=== PATIENT | male | born 1960 | race African-American/Black ===

== ENCOUNTER 2017-06-03 09:38 | Inpatient (IN) | payer OTHER ==
[2017-06-03 12:41] VITALS: BMI 18.7
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
[2017-06-03] MEDS ORDERED: chlordiazePOXIDE HCL 25 MG CAPSULE PO PRN (16:33)
[2017-06-03] MEDS ORDERED: NICOTINE POLACRILEX 2 MG GUM BC PRN (16:33)
[2017-06-03] MEDS ORDERED: diphenhydrAMINE HCL 50 MG CAPSULE PO PRN (16:33)
[2017-06-03] MEDS ORDERED: MENTHOL/PHENOL 1 EACH UD MM PRN (16:33)
[2017-06-03] MEDS ORDERED: P-EPHED 60MG/TRIPROLIDI 2.5MG TABLET PO PRN (16:33)
[2017-06-03] MEDS ORDERED: MAGNESIUM HYDROX 2400MG/30ML ORAL SUSPENSION 30 ML CUP PO PRN (16:33)
[2017-06-03] MEDS ORDERED: MAG HYDROX/AL HYDROX/SIMETH 30 ML UNIT-DOSE CUP PO PRN (16:33)
[2017-06-03] MEDS ORDERED: guaiFENesin/D-METHORPHAN HB 10 ML UNIT-DOSE CUPS PO PRN (16:33)
[2017-06-03] MEDS ORDERED: ACETAMINOPHEN 325 MG TABLET (FP) PO PRN (16:33)
[2017-06-03] MEDS ORDERED: IBUPROFEN 400 MG TABLET (FP) PO PRN (16:33)
[2017-06-03] MEDS ORDERED: MAGNESIUM CITRATE 300 ML BOTTLE PO PRN (16:33)
[2017-06-03] MEDS ORDERED: LOPERAMIDE HCL 2 MG CAPSULE PO PRN (16:33)
[2017-06-03] MEDS ORDERED: hydrOXYzine PAMOATE 50 MG CAPSULE (FP) PO PRN (16:33)
[2017-06-03] MEDS: chlordiazePOXIDE HCL 25 MG CAPSULE PO SCH ×2 (17:21→22:18)
[2017-06-03] MEDS: NICOTINE 21 MG/24 HOURS TOPICAL PATCH TD SCH (17:26)
[2017-06-03] MEDS ORDERED: chlordiazePOXIDE HCL 25 MG CAPSULE PO ONE (17:30)
[2017-06-03] MEDS ORDERED: PATIENT'S OWN MEDICATION (NON-FORMULARY) (Dorzolamide Hcl/Timolol Maleat [Cosopt Eye Drops OU SCH (22:00)
[2017-06-03] MEDS: THIAMINE HCL 100 MG TABLET (FP) PO SCH (22:18)
[2017-06-03] MEDS: LATANOPROST 0.005% OPHTH SOLN 2.5ML BOTTLE OU SCH (22:20)
[2017-06-03] MEDS: AMMONIUM LACTATE 12% LOTION 225 GM BOTTLE TP SCH (22:22)
[2017-06-03] MEDS: BRIMONIDINE TARTRATE 0.2% OPHTHALMIC 5 ML BOTTLE OU SCH (22:22)
[2017-06-03] MEDS: DORZOLAMIDE 2% HCL OPHTHALMIC SOLUTION 10 ML BOTTLE OU SCH (22:22)
[2017-06-03] MEDS: CLOTRIMAZOLE 1% CREAM 15 GM TUBE TP SCH (22:23)
[2017-06-03] MEDS: TIMOLOL 0.5% OPHTHALMIC SOL 5 ML BOTTLE OU SCH (22:24)
[2017-06-03 22:39] LABS: URINE APPEARANCE CLEAR; URINE BILIRUBIN NEGATIVE (NEGATIVE); URINE BLOOD 1+ (NEGATIVE); URINE COLOR YELLOW; URINE GLUCOSE (UA) NEGATIVE (NEGATIVE); URINE KETONE NEGATIVE (NEGATIVE); URINE LEUK ESTERASE NEGATIVE (NEGATIVE); URINE NITRITE NEGATIVE (NEGATIVE); URINE PROTEIN NEGATIVE (NEGATIVE)
[2017-06-03 23:18] LABS: CALCIUM OXALATE CRYSTALS RARE /hpf (NONE SEEN); URINE MUCUS RARE; URINE RBC 1 /hpf (0-3); URINE WBC 6 /hpf (3-5)
[2017-06-04] MEDS: chlordiazePOXIDE HCL 25 MG CAPSULE PO SCH ×4 (06:02→22:36)
[2017-06-04] MEDS: BRIMONIDINE TARTRATE 0.2% OPHTHALMIC 5 ML BOTTLE OU SCH ×2 (10:15→22:35)
[2017-06-04] MEDS: TIMOLOL 0.5% OPHTHALMIC SOL 5 ML BOTTLE OU SCH ×2 (10:16→22:36)
[2017-06-04] MEDS: AMMONIUM LACTATE 12% LOTION 225 GM BOTTLE TP SCH ×2 (10:16→22:37)
[2017-06-04] MEDS: DORZOLAMIDE 2% HCL OPHTHALMIC SOLUTION 10 ML BOTTLE OU SCH ×2 (10:16→23:52)
[2017-06-04] MEDS: PRENATAL VITAMINS W/ FOLIC ACID TABLET (FP) PO SCH (10:17)
[2017-06-04] MEDS: CLOTRIMAZOLE 1% CREAM 15 GM TUBE TP SCH ×2 (10:17→23:10)
[2017-06-04] MEDS: NICOTINE 21 MG/24 HOURS TOPICAL PATCH TD SCH (10:17)
--- NOTE | 2017-06-04 10:31 | CONSULT ---
[facility] Psychiatric Consult - Data Date of interview: 06/04/17 Admission source: [facility] Identifying data: First admission to [facility] for this 56 y/o AA male seeking detox treatment on for alcohol and cocaine dependence.Patient is single without children,homeless,unemployed and supported on Public Assistance. Substance Abuse History: Patient endorses an extensive history of substance abuse since age 16 for alcohol and age 20 for cocaine." I drink everything that I can get my hands on." Wine,rum,beer,hard liquors.Daily.Smokes 1/2 pack of cigarettes/day.Last reported use 06/03/17. Medical History: Glaucoma,cataract in left eye,arthritis and a history of lung ( right) surgery in 2013. Psychiatric History: Patient denies history of psychiatric hospitalizations.Used to be prescribed seroquel for sleep.No recent history of OPD care.Mr Hardin denies history of suicide attempts. Physical/Sexual Abuse/Trauma History: Patient denies. Additional Comment: Urine Drug Screen Results: NATALIA-Cocaine, PCP- Phencyclidine.Noted. Mental Status Exam - Mental Status Exam Alert and Oriented to: Time, Place, Person Cognitive Function: Good Patient Appearance: Unkempt, Disheveled (tall stature,cachetic;walks with a stooped posture) Mood: Hopeful, Euthymic Affect: Appropriate, Normal Range Patient Behavior: Fatigued, Cooperative Speech Pattern: Clear Voice Loudness: Normal Thought Process: Goal Oriented Thought Disorder: Not Present Hallucinations: Denies Suicidal Ideation: Denies Homicidal Ideation: Denies Insight/Judgement: Poor Sleep: Poorly, Difficulty falling asleep Appetite: Good Gait/Station: Other (ambulates with a stooped posture) Psychiatric Findings - Problem List ([place] 1, 2,3) (1) Alcohol dependence with uncomplicated withdrawal Current Visit: Yes Status: Acute (2) Cocaine dependence, uncomplicated Current Visit: Yes Status: Acute (3) Nicotine dependence Current Visit: Yes Status: Acute Qualifiers: Nicotine product type: cigarettes Substance use status: uncomplicated Qualified Code(s): F17.210 - Nicotine dependence, cigarettes, uncomplicated (4) PCP abuse Current Visit: Yes Status: Acute (5) Cataract, left eye Current Visit: Yes Status: Chronic Qualifiers: Cataract type: unspecified Qualified Code(s): H26.9 - Unspecified cataract (6) Glaucoma, bilateral Current Visit: Yes Status: Chronic Qualifiers: Glaucoma type: unspecified Qualified Code(s): H40.9 - Unspecified glaucoma (7) Left leg injury Current Visit: Yes Status: Chronic Qualifiers: Encounter type: sequela Qualified Code(s): S89.92XS - Unspecified injury of left lower leg, sequela Comment: Occurred in 2006. (8) Insomnia Current Visit: Yes Status: Acute - Initial Treatment Plan Initial Treatment Plan: Psychoeducation.Detoxification.Falls precautions.Orientation to the unit (patient has decreased vision).Seroquel (at patient's request) 50 mg po hs.Side effects/benefits discussed with Mr Hardin.He expresses his agreement with this plan of care.Monitor progress.
[2017-06-04 11:08] LABS: ALBUMIN 3.4 g/dl (3.4-5.0); ALK PHOS 75 U/L (45-117); ANION GAP 5 (8-16); BILIRUBIN,TOTAL 0.8 mg/dL (0.2-1.0); CALCIUM 9.3 mg/dL (8.5-10.1); CO2 29 mmol/L (21-32); CREATININE 1.2 mg/dL (0.7-1.3); GLUCOSE,RANDOM 93 mg/dL (74-106); SGOT/AST 18 U/L (15-37); SGPT/ALT 15 U/L (12-78); TOT PROT 7.1 g/dl (6.4-8.2)
[2017-06-04 11:11] LABS: MCH 33.2 pg (25.7-33.7); MEAN CELL VOLUME 97.7 fl (80-96); MEAN PLT VOLUME 9.8 fl (7.5-11.1); PLATELET COUNT 211 K/MM3 (134-434); WHITE BLOOD COUNT 4.5 K/mm3 (4.0-10.0)
[2017-06-04 11:39] LABS: HIV 1 & 2 AB NEGATIVE; HIV 1 AGp24 NEGATIVE
[2017-06-04 13:15] LABS: SICKLE CELL SCREEN POSITIVE (NEGATIVE)
--- NOTE | 2017-06-04 15:38 | PN ---
[facility] CIWA - CIWA Score Nausea/Vomitin-Mild Nausea/No Vomiting Muscle Tremors: 4-Moderate,w/Arms Extend Anxiety: 3 Agitation: 2 Paroxysmal Sweats: 3 Orientation: 0-Oriented Tacttile Disturbances: 0-None Auditory Disturbances: 3-Moderate Harsh/Frighten Visual Disturbances: 2-Mild Sensitivity Headache: 0-None Present CIWA-Ar Total Score: 18 S Progress Note (SOAP) Subjective: Tremors, Fatigue, Sweating, Body Aches. Objective: PT. A & O X 3, OBSERVED AMBULATING ON UNIT. NO ACUTE DISTRESS. 06/04/17 15:33 Vital Signs Temperature 97.5 F L 06/04/17 10:00 Pulse Rate 71 06/04/17 10:00 Respiratory Rate 18 06/04/17 10:00 Blood Pressure 118/86 06/04/17 10:00 O2 Sat by Pulse Oximetry (%) Laboratory Tests 06/03/17 06/04/17 06/04/17 16:15 06:00 06:00 WBC 4.5 RBC 4.16 Hgb 13.8 Hct 40.7 MCV 97.7 H MCH 33.2 MCHC 34.0 RDW 15.0 Plt Count 211 MPV 9.8 Sickle Cell Screen Positive Sodium 142 Potassium 4.5 Chloride 108 H Carbon Dioxide 29 Anion Gap 5 L BUN 17 Creatinine 1.2 Creat Clearance w eGFR > 60 Random Glucose 93 Calcium 9.3 Total Bilirubin 0.8 AST 18 ALT 15 Alkaline Phosphatase 75 Total Protein 7.1 Albumin 3.4 Urine Color Yellow Urine Appearance Clear Urine pH 5.0 Ur Specific [place] 1.025 Urine Protein Negative Urine Glucose (UA) Negative Urine Ketones Negative Urine Blood 1+ H Urine Nitrite Negative Urine Bilirubin Negative Urine Urobilinogen 2.0 Ur Leukocyte Esterase Negative Urine RBC 1 Urine WBC 6 Calcium Oxalate Crystal Rare Urine Mucus Rare RPR Titer HIV 1&2 Antibody Screen HIV P24 Antigen 06/04/17 06/04/17 06:00 08:00 WBC RBC Hgb Hct MCV MCH MCHC RDW Plt Count MPV Sickle Cell Screen Sodium Potassium Chloride Carbon Dioxide Anion Gap BUN Creatinine Creat Clearance w eGFR Random Glucose Calcium Total Bilirubin AST ALT Alkaline Phosphatase Total Protein Albumin Urine Color Urine Appearance Urine pH Ur Specific [place] Urine Protein Urine Glucose (UA) Urine Ketones Urine Blood Urine Nitrite Urine Bilirubin Urine Urobilinogen Ur Leukocyte Esterase Urine RBC Urine WBC Calcium Oxalate Crystal Urine Mucus RPR Titer Nonreactive HIV 1&2 Antibody Screen Negative HIV P24 Antigen Negative LABS NOTED. HCV ANTIBODY RESULT PENDING. 06/04/17 15:36 Assessment: 06/04/17 15:34 WITHDRAWAL SYMPTOMS. Plan: CONTINUE DETOX. PATIENT MADE AWARE OF POSITIVE SICKLE CELL SCREEN RESULT. ADVISED T FOLLOW-UP WITH PRIMARY CARE MEDICAL PROVIDER AFTER DISCHARGE FROM DETOX FOR FURTHER EVALUATION.
[2017-06-04] MEDS: QUEtiapine FUMARATE 50 MG TABLET PO SCH (22:36)
[2017-06-04] MEDS: THIAMINE HCL 100 MG TABLET (FP) PO SCH (22:36)
[2017-06-04] MEDS: LATANOPROST 0.005% OPHTH SOLN 2.5ML BOTTLE OU SCH (22:36)
[2017-06-05] MEDS: chlordiazePOXIDE HCL 25 MG CAPSULE PO SCH ×2 (05:57→10:53)
[2017-06-05] MEDS: TIMOLOL 0.5% OPHTHALMIC SOL 5 ML BOTTLE OU SCH ×2 (10:53→22:15)
[2017-06-05] MEDS: PRENATAL VITAMINS W/ FOLIC ACID TABLET (FP) PO SCH (10:53)
[2017-06-05] MEDS: CLOTRIMAZOLE 1% CREAM 15 GM TUBE TP SCH ×2 (10:53→22:19)
[2017-06-05] MEDS: BRIMONIDINE TARTRATE 0.2% OPHTHALMIC 5 ML BOTTLE OU SCH ×2 (10:53→22:54)
[2017-06-05] MEDS: AMMONIUM LACTATE 12% LOTION 225 GM BOTTLE TP SCH ×2 (10:53→22:19)
[2017-06-05] MEDS: NICOTINE 21 MG/24 HOURS TOPICAL PATCH TD SCH (10:53)
[2017-06-05] MEDS: DORZOLAMIDE 2% HCL OPHTHALMIC SOLUTION 10 ML BOTTLE OU SCH ×2 (10:54→22:15)
--- NOTE | 2017-06-05 16:03 | PN ---
S CIWA - CIWA Score Nausea/Vomitin Muscle Tremors: 3 Anxiety: 3 Agitation: 4-Moderately Restless Paroxysmal Sweats: No Perspiration Orientation: 0-Oriented Tacttile Disturbances: 1-Very Mild Itch/Numbness Auditory Disturbances: 0-None Visual Disturbances: 0-None Headache: 1-Very Mild CIWA-Ar Total Score: 14 S Progress Note (SOAP) Subjective: Anxious, sweating, chills, interrupted sleep Objective: 06/05/17 16:01 Last Vital Signs Temp Pulse Resp BP Pulse Ox 97.5 F L 71 20 108/79 06/05/17 14:36 06/05/17 14:36 06/05/17 14:36 06/05/17 14:36 Laboratory Tests 06/03/17 06/04/17 06/04/17 16:15 06:00 06:00 WBC 4.5 RBC 4.16 Hgb 13.8 Hct 40.7 MCV 97.7 H MCH 33.2 MCHC 34.0 RDW 15.0 Plt Count 211 MPV 9.8 Sickle Cell Screen Positive Sodium 142 Potassium 4.5 Chloride 108 H Carbon Dioxide 29 Anion Gap 5 L BUN 17 Creatinine 1.2 Creat Clearance w eGFR > 60 Random Glucose 93 Calcium 9.3 Total Bilirubin 0.8 AST 18 ALT 15 Alkaline Phosphatase 75 Total Protein 7.1 Albumin 3.4 Urine Color Yellow Urine Appearance Clear Urine pH 5.0 Ur Specific [place] 1.025 Urine Protein Negative Urine Glucose (UA) Negative Urine Ketones Negative Urine Blood 1+ H Urine Nitrite Negative Urine Bilirubin Negative Urine Urobilinogen 2.0 Ur Leukocyte Esterase Negative Urine RBC 1 Urine WBC 6 Calcium Oxalate Crystal Rare Urine Mucus Rare RPR Titer HIV 1&2 Antibody Screen HIV P24 Antigen 06/04/17 06/04/17 06:00 08:00 WBC RBC Hgb Hct MCV MCH MCHC RDW Plt Count MPV Sickle Cell Screen Sodium Potassium Chloride Carbon Dioxide Anion Gap BUN Creatinine Creat Clearance w eGFR Random Glucose Calcium Total Bilirubin AST ALT Alkaline Phosphatase Total Protein Albumin Urine Color Urine Appearance Urine pH Ur Specific [place] Urine Protein Urine Glucose (UA) Urine Ketones Urine Blood Urine Nitrite Urine Bilirubin Urine Urobilinogen Ur Leukocyte Esterase Urine RBC Urine WBC Calcium Oxalate Crystal Urine Mucus RPR Titer Nonreactive HIV 1&2 Antibody Screen Negative HIV P24 Antigen Negative Labs noted: UA 1+ blood Assessment: 06/05/17 16:02 Withdrawal symptoms Noted with microscopic hematuria Plan: Continue detox Microscopic hematuria: encouraged to drink lots of water, repeat UA
[2017-06-05] MEDS: chlordiazePOXIDE 5 MG CAPSULE PO SCH ×2 (17:44→22:14)
[2017-06-05] MEDS: QUEtiapine FUMARATE 50 MG TABLET PO SCH (22:14)
[2017-06-05] MEDS: LATANOPROST 0.005% OPHTH SOLN 2.5ML BOTTLE OU SCH (22:14)
[2017-06-05] MEDS: THIAMINE HCL 100 MG TABLET (FP) PO SCH (22:19)
[2017-06-06] MEDS: chlordiazePOXIDE 5 MG CAPSULE PO SCH ×2 (06:37→10:34)
[2017-06-06] MEDS: PRENATAL VITAMINS W/ FOLIC ACID TABLET (FP) PO SCH (10:34)
[2017-06-06] MEDS: TIMOLOL 0.5% OPHTHALMIC SOL 5 ML BOTTLE OU SCH ×2 (10:34→21:06)
[2017-06-06] MEDS: BRIMONIDINE TARTRATE 0.2% OPHTHALMIC 5 ML BOTTLE OU SCH ×2 (10:34→21:07)
[2017-06-06] MEDS: DORZOLAMIDE 2% HCL OPHTHALMIC SOLUTION 10 ML BOTTLE OU SCH ×2 (10:34→21:06)
[2017-06-06] MEDS: CLOTRIMAZOLE 1% CREAM 15 GM TUBE TP SCH ×2 (10:35→23:05)
[2017-06-06] MEDS: NICOTINE 21 MG/24 HOURS TOPICAL PATCH TD SCH (10:35)
[2017-06-06] MEDS: AMMONIUM LACTATE 12% LOTION 225 GM BOTTLE TP SCH ×2 (10:35→22:29)
--- NOTE | 2017-06-06 11:25 | PN ---
BHS Progress Note (SOAP) Subjective: Sweating,interrupted sleep,restless Objective: 06/06/17 11:23 Vital Signs - 8 hr 06/06/17 06/06/17 06/06/17 03:32 06:52 09:27 Temperature 97.3 F L 98.1 F Pulse Rate 67 72 Respiratory 18 18 18 Rate Blood Pressure 114/80 107/77 Laboratory Last Values WBC 4.5 K/mm3 (4.0-10.0) 06/04/17 06:00 RBC 4.16 M/mm3 (4.00-5.60) 06/04/17 06:00 Hgb 13.8 GM/dL (11.7-16.9) 06/04/17 06:00 Hct 40.7 % (35.4-49) 06/04/17 06:00 MCV 97.7 fl (80-96) H 06/04/17 06:00 MCH 33.2 pg (25.7-33.7) 06/04/17 06:00 MCHC 34.0 g/dl (32.0-35.9) 06/04/17 06:00 RDW 15.0 % (11.9-15.9) 06/04/17 06:00 Plt Count 211 K/MM3 (134-434) 06/04/17 06:00 MPV 9.8 fl (7.5-11.1) 06/04/17 06:00 Sickle Cell Screen Positive (NEGATIVE) 06/04/17 06:00 Sodium 142 mmol/L (136-145) 06/04/17 06:00 Potassium 4.5 mmol/L (3.5-5.1) 06/04/17 06:00 Chloride 108 mmol/L (98-107) H 06/04/17 06:00 Carbon Dioxide 29 mmol/L (21-32) 06/04/17 06:00 Anion Gap 5 (8-16) L 06/04/17 06:00 BUN 17 mg/dL (7-18) 06/04/17 06:00 Creatinine 1.2 mg/dL (0.7-1.3) 06/04/17 06:00 Creat Clearance w eGFR > 60 (>60) 06/04/17 06:00 Random Glucose 93 mg/dL (74-106) 06/04/17 06:00 Calcium 9.3 mg/dL (8.5-10.1) 06/04/17 06:00 Total Bilirubin 0.8 mg/dL (0.2-1.0) 06/04/17 06:00 AST 18 U/L (15-37) 06/04/17 06:00 ALT 15 U/L (12-78) 06/04/17 06:00 Alkaline Phosphatase 75 U/L (45-117) 06/04/17 06:00 Total Protein 7.1 g/dl (6.4-8.2) 06/04/17 06:00 Albumin 3.4 g/dl (3.4-5.0) 06/04/17 06:00 Urine Color Yellow 06/03/17 16:15 Urine Appearance Clear 06/03/17 16:15 Urine pH 5.0 (5.0-8.0) 06/03/17 16:15 Ur Specific [place] 1.025 (1.005-1.025) 06/03/17 16:15 Urine Protein Negative (NEGATIVE) 06/03/17 16:15 Urine Glucose (UA) Negative (NEGATIVE) 06/03/17 16:15 Urine Ketones Negative (NEGATIVE) 06/03/17 16:15 Urine Blood 1+ (NEGATIVE) H 06/03/17 16:15 Urine Nitrite Negative (NEGATIVE) 06/03/17 16:15 Urine Bilirubin Negative (NEGATIVE) 06/03/17 16:15 Urine Urobilinogen 2.0 mg/dL (0.2-1.0) 06/03/17 16:15 Ur Leukocyte Esterase Negative (NEGATIVE) 06/03/17 16:15 Urine RBC 1 /hpf (0-3) 06/03/17 16:15 Urine WBC 6 /hpf (3-5) 06/03/17 16:15 Calcium Oxalate Crystal Rare /hpf (NONE SEEN) 06/03/17 16:15 Urine Mucus Rare 06/03/17 16:15 RPR Titer Nonreactive (NONREACTIVE) 06/04/17 06:00 HIV 1&2 Antibody Screen Negative 06/04/17 08:00 HIV P24 Antigen Negative 06/04/17 08:00 labs noted Assessment: 06/06/17 11:23 Withdrawal sx. Sickle cell +,Hb electrophoresis is pending. Plan: continue detox
--- NOTE | 2017-06-06 12:01 | EKG ---
Test Reason : Blood Pressure : / mmHG Vent. Rate : 071 BPM Atrial Rate : 071 BPM P-R Int : 180 ms QRS Dur : 112 ms QT Int : 390 ms P-R-T Axes : 054 079 074 degrees QTc Int : 423 ms NORMAL SINUS RHYTHM INCOMPLETE RIGHT BUNDLE BRANCH BLOCK BORDERLINE ECG NO PREVIOUS ECGS AVAILABLE Confirmed by LILLIAM MEDINA, SEPIDEH ([id number]) on 06/06/2017 12:00:53 PM Referred By: Confirmed By:SEPIDEH VYAS MD
[2017-06-06 13:16] LABS: URINE APPEARANCE CLEAR; URINE BILIRUBIN NEGATIVE (NEGATIVE); URINE BLOOD 1+ (NEGATIVE); URINE COLOR LTYELLOW; URINE GLUCOSE (UA) NEGATIVE (NEGATIVE); URINE KETONE NEGATIVE (NEGATIVE); URINE LEUK ESTERASE NEGATIVE (NEGATIVE); URINE NITRITE NEGATIVE (NEGATIVE); URINE PROTEIN NEGATIVE (NEGATIVE); URINE UROBILINOGEN NEGATIVE mg/dL (0.2-1.0)
[2017-06-06 13:23] LABS: URINE MUCUS RARE; URINE RBC 2 /hpf (0-3); URINE WBC 2 /hpf (3-5)
[2017-06-06] MEDS: chlordiazePOXIDE HCL 10 MG CAPSULE PO SCH ×2 (17:22→22:27)
[2017-06-06 18:12] VITALS: PULSE 71
[2017-06-06] MEDS: LATANOPROST 0.005% OPHTH SOLN 2.5ML BOTTLE OU SCH (21:07)
[2017-06-06 22:14] VITALS: BP 115/86; TEMP 97
[2017-06-06] MEDS: QUEtiapine FUMARATE 50 MG TABLET PO SCH (22:28)
[2017-06-06] MEDS: THIAMINE HCL 100 MG TABLET (FP) PO SCH (22:29)
[2017-06-07] MEDS: chlordiazePOXIDE HCL 10 MG CAPSULE PO SCH (07:10)
[2017-06-07] MEDS: BRIMONIDINE TARTRATE 0.2% OPHTHALMIC 5 ML BOTTLE OU SCH (09:42)
[2017-06-07] MEDS: TIMOLOL 0.5% OPHTHALMIC SOL 5 ML BOTTLE OU SCH (09:42)
[2017-06-07] MEDS: AMMONIUM LACTATE 12% LOTION 225 GM BOTTLE TP SCH (09:42)
[2017-06-07] MEDS: DORZOLAMIDE 2% HCL OPHTHALMIC SOLUTION 10 ML BOTTLE OU SCH (09:42)
[2017-06-07] MEDS: NICOTINE 21 MG/24 HOURS TOPICAL PATCH TD SCH (09:42)
[2017-06-07] MEDS: PRENATAL VITAMINS W/ FOLIC ACID TABLET (FP) PO SCH (09:42)
[2017-06-07] MEDS: CLOTRIMAZOLE 1% CREAM 15 GM TUBE TP SCH (09:43)
--- NOTE | 2017-06-08 16:38 | DS ---
[facility] Detox Discharge Summary Admission Date: 06/03/17 Discharge Date: 06/07/17 - History Present History: Alcohol Dependence, Cocaine Dependence - Physical Exam Results Vital Signs: Vital Signs Temperature 97 F L 06/06/17 22:14 Pulse Rate 71 06/06/17 22:14 Respiratory Rate 18 06/07/17 03:29 Blood Pressure 115/86 06/06/17 22:14 O2 Sat by Pulse Oximetry (%) - Treatment Hospital Course: Detox Protocol Followed, Detoxed Safely, Responded well, Discharged Condition Good, Rehab Referral Accepted - Medication Discharge Medications: Ambulatory Orders Brimonidine Tartrate [Alphagan 0.2% -] 1 drop OP BID 06/03/17 Clotrimazole [Lotrimin 1% Cream -] 1 applic TP BID 06/03/17 Dorzolamide HCl/Timolol Maleat [Cosopt Eye Drops] 1 drop OP BID 06/03/17 Latanoprost 0.005% Eye Drops [Xalatan 0.005% Eye Drops -] 1 drop OP HS 06/03/17 - AMA Did Patient Leave Against Medical Advice: No
== END 2017-06-07 09:45 | disposition home or self-care (01) | DRG 774 ==
LOC: YASAS 09:38 → Y3N 14:35
PROVIDERS: ADMIT Internal Medicine Addiction Medicine; ATTEND Internal Medicine Addiction Medicine
PROC: HZ2ZZZZ Detoxification Services for Substance Abuse Treatment (ICD-10-PCS; principal; 2017-06-07)
DX: F10.230 Alcohol dependence with withdrawal, uncomplicated (principal); F14.20 Cocaine dependence, uncomplicated; F17.210 Nicotine dependence, cigarettes, uncomplicated; F16.10 Hallucinogen abuse, uncomplicated; G47.00 Insomnia, unspecified; H26.9 Unspecified cataract; H40.9 Unspecified glaucoma
CPT/HCPCS: 36415; 80053; 81003; 81015; 83021; 85027; 85660; 86593; 86803; 87389; 93005; 93010